=== PATIENT | male | born 1980 | race Caucasian/White ===

== ENCOUNTER 2018-06-09 16:59 | Emergency (ER) | payer SELFPAY ==
[2018-06-09] MEDS ORDERED: Ketorolac 30 MG/ML SDV IVPUSH ONE (17:30)
[2018-06-09] MEDS ORDERED: methylPREDNISolone Sodium Succinate 125 MG/2 ML SDV IVPUSH ONE (17:30)
--- NOTE | 2018-06-09 17:36 | EDM.PDOC ---
ED HPI GENERAL MEDICAL PROBLEM - General Chief Complaint: Back Pain or Injury Stated Complaint: BACK PAIN Time Seen by Provider: 06/09/18 17:23 Source of Information: Reports: Patient History Limitations: Reports: No Limitations - History of Present Illness INITIAL COMMENTS - FREE TEXT/NARRATIVE: HISTORY AND PHYSICAL: History of present illness: Patient is a 37-year-old male who is brought to the emergency room by EMS with complaints of low back pain. He states he was picking up some toys of his children when he had a tense low mid back pain. He states this soon as he stood up and brought him to his knees. Unable to ambulate out of the house and therefore called EMS for transport. Similar back pain approximately 7 years ago due to a similar instance, does not recall injury. He denies any urinary or fecal incontinence. Denies any numbness or tingling to the distal extremities. He denies any fever, chills, chest pain, shortness of breath or cough. Denies any abdominal pain, nausea, vomiting, dysuria, diarrhea or constipation. Review of systems: As per history of present illness and below otherwise all systems reviewed and negative. Past medical history: As per history of present illness and as reviewed below otherwise noncontributory. Surgical history: As per history of present illness and as reviewed below otherwise noncontributory. Social history: No reported history of drug or alcohol abuse. Family history: As per history of present illness and as reviewed below otherwise noncontributory. Physical exam: General: Well-developed and well-nourished 37-year-old male. Alert and oriented. Nontoxic appearing and in no acute distress. HEENT: Atraumatic, normocephalic, pupils equal and reactive bilaterally, negative for conjunctival pallor or scleral icterus, mucous membranes moist, throat clear, neck supple, nontender, trachea midline. No drooling or trismus noted. No meningeal signs Lungs: Clear to auscultation, breath sounds equal bilaterally, chest nontender. Heart: S1S2, regular rate and rhythm without overt murmur Abdomen: Soft, nondistended, nontender. Negative for masses or hepatosplenomegaly. Negative for costovertebral tenderness. Pelvis: Stable nontender. Genitourinary: Deferred. Rectal: Deferred. C-spine/Back: No pinpoint vertebral tenderness upon palpation. No crepitus, step -offs or obvious deformities. Muscular spasms when rotating to turn onto a side. It is localized to the mid low back and does not radiate down either leg. Skin: Intact, warm, dry. No lesions or rashes noted. Extremities: Atraumatic, negative for cords or calf pain. Neurovascular unremarkable. Neuro: Awake, alert, oriented. Cranial nerves II through XII unremarkable. Cerebellum unremarkable. Motor and sensory unremarkable throughout. Exam nonfocal. Notes: Patient did receive 100 g of fentanyl and 5 mg of Versed per EMS prior to arrival. I will give him some Solu-Medrol and Toradol while waiting for x-ray. Lumbar spine x-ray shows no fractures, good lumbar alignment. His information was shared with the patient. Prescription for Medrol Dosepak, Flexeril and diclofenac. Supportive care measures were reviewed and discussed. He is agreeable to plan of care. Denies any further questions at this time. Diagnostics: Lumbar x-ray Therapeutics: Solu-Medrol, Toradol Impression: Low back pain Muscle spasm Plan: 1. Please make sure you are not and mobile for long periods of time as this can increase your back pain. Sure when you are lying you are resting on a firm surface flat on your back (avoid sleeping on your stomach). Gentle heat and stretching may be beneficial. 2. Tylenol as needed for pain. Prescription for a Medrol dosepak (steriod), Flexeril (muscle relaxor) and Diclofenac (anti-inflammatory) prescribed. Please take these as directed. 3. Please follow-up with your primary care provider next 1-2 days. Return to the ED as needed and as discussed. Definitive disposition and diagnosis as appropriate pending reevaluation and review of above. Arm Pain Score (Numeric/FACES): 5 - Related Data Allergies Allergy/AdvReac Type Severity Reaction Status Date / Time No Known Allergies Allergy Verified 06/09/18 17:24 Home Meds: Home Meds Lisinopril [Zestril] 20 mg PO BID 06/09/18 [History] Metoprolol Tartrate [Lopressor] 25 mg PO Q12HR 06/09/18 [History] ED ROS GENERAL - Review of Systems Review Of Systems: ROS reveals no pertinent complaints other than HPI. ED EXAM,LOWER BACK PAIN/INJURY - Physical Exam Exam: See Below (See dictation) Course - Vital Signs Last Recorded V/S: Last Vital Signs Temp 97.9 F 06/09/18 17:26 Pulse 87 06/09/18 18:33 Resp 19 06/09/18 18:33 BP 162/89 H 06/09/18 18:33 Pulse Ox 97 06/09/18 18:33 - Orders/Labs/Meds Orders: Active Orders 24 hr Category Date Time Status Lumbar Spine 2 or 3V [CR] Stat Exams 06/09/18 17:29 Taken Meds: Medications Discontinued Medications Generic Name Dose Route Start Last Admin Trade Name Fresilvio PRN Reason Stop Dose Admin Ketorolac Tromethamine 30 mg 06/09/18 17:30 06/09/18 17:37 Toradol IVPUSH 06/09/18 17:31 30 mg ONETIME ONE Administration Methylprednisolone Sodium Succinate 125 mg 06/09/18 17:30 06/09/18 17:39 Solu-Medrol IVPUSH 06/09/18 17:31 125 mg ONETIME ONE Administration Departure - Departure Time of Disposition: 18:23 Disposition: Home, Self-Care 01 Clinical Impression: Muscle spasm of back Low back pain Qualifiers: Chronicity: acute Back pain laterality: midline Sciatica presence: without sciatica Qualified Code(s): M54.5 - Low back pain - Discharge Information Instructions: Muscle Cramps and Spasms, [id number], Back Pain, Adult, Easy-to -Read Referrals: PCP,None [Primary Care Provider] - Forms: ED Department Discharge Additional Instructions: The following information is given to patients seen in the emergency department who are being discharged to home. This information is to outline your options for follow-up care. We provide all patients seen in our emergency department with a follow-up referral. The need for follow-up, as well as the timing and circumstances, are variable depending upon the specifics of your emergency department visit. If you don't have a primary care physician on staff, we will provide you with a referral. We always advise you to contact your personal physician following an emergency department visit to inform them of the circumstance of the visit and for follow-up with them and/or the need for any referrals to a consulting specialist. The emergency department will also refer you to a specialist when appropriate. This referral assures that you have the opportunity for follow-up care with a specialist. All of these measure are taken in an effort to provide you with optimal care, which includes your follow-up. Under all circumstances we always encourage you to contact your private physician who remains a resource for coordinating your care. When calling for follow-up care, please make the office aware that this follow-up is from your recent emergency room visit. If for any reason you are refused follow-up, please contact the [facility] Emergency Department at and asked to speak to the emergency department charge nurse. [facility] [address] [place] [id number] 1. Please make sure you are not and mobile for long periods of time as this can increase your back pain. Sure when you are lying you are resting on a firm surface flat on your back (avoid sleeping on your stomach). Gentle heat and stretching may be beneficial. 2. Tylenol as needed for pain. Prescription for a Medrol dosepak (steriod), Flexeril (muscle relaxor) and Diclofenac (anti-inflammatory) prescribed. Please take these as directed. 3. Please follow-up with your primary care provider next 1-2 days. Return to the ED as needed and as discussed. - My Orders Last 24 Hours: My Active Orders 06/09/18 17:29 Lumbar Spine 2 or 3V [CR] Stat - Assessment/Plan Last 24 Hours: My Active Orders 06/09/18 17:29 Lumbar Spine 2 or 3V [CR] Stat
--- NOTE | 2018-06-10 13:22 | CR ---
EXAM DATE: 06/09/18 PATIENT'S AGE: 37 Patient: SUSAN NAVARRO Facility: [place], [place] Site . Site : 1980 Study: XRay Spine Lumbar [id number]/[id number] 5:56:02 PM Ordering Physician: Doctor Palomino Final Report: 3 VIEWS lumbar spine. INDICATION: Pain. IMPRESSION: Discogenic narrowing and annular spurring at T11/12. Normal lumbar alignment. Normal lumbar vertebral bodies and disc spaces. No listhesis. No visualized compression fracture. Dictated by Brian Michael MD @ Jun 09 2018 6:11PM (Electronic Signature) Report Signed by Proxy. MARIANNE
== END 2018-06-09 18:36 | disposition home or self-care (01) ==
LOC: MW.ED 16:59
DX: M62.830 Muscle spasm of back (principal)
CPT/HCPCS: 72100; 96374; 96375; 99284; J1885; J2930